=== PATIENT | female | born 1950 | race Caucasian/White ===

== ENCOUNTER → 2017-06-30 | Outpatient (CLI) | payer OTHER, MEDICARE | END | disposition home or self-care (01) | LOC: RAD 09:34 | PROVIDERS: ATTEND Podiatrist Foot & Ankle Surgery | DX: Z01.810 Encounter for preprocedural cardiovascular examination (principal) | CPT/HCPCS: 93005 ==

== ENCOUNTER → 2018-05-26 | Outpatient (CLI) | payer OTHER, MEDICARE | END | disposition home or self-care (01) | LOC: CFH 13:45 | PROVIDERS: ATTEND Obstetrics & Gynecology Female Pelvic Medicine and Reconstructive Surgery | DX: Z12.31 Encounter for screening mammogram for malignant neoplasm of breast (principal); Z13.820 Encounter for screening for osteoporosis; M85.88 Other specified disorders of bone density and structure, other site; Z78.0 Asymptomatic menopausal state | CPT/HCPCS: 77063; 77080; 77067 ==

== ENCOUNTER → 2018-09-18 | Outpatient (CLI) | payer MEDICARE, OTHER ==
[~2018-09-18] MED LIST: ACYC-114 PO; B CO1TAB14 PO; CALC-316 PO; IRON PO; VITAMIN K PO; [UNRECOGNIZED DRUG - OTHER] PO
== END | disposition home or self-care (01) ==
LOC: STAR 07:50
PROVIDERS: ATTEND Orthopaedic Surgery Foot and Ankle Surgery
DX: Z01.818 Encounter for other preprocedural examination (principal); M20.12 Hallux valgus (acquired), left foot; M79.672 Pain in left foot
CPT/HCPCS: 93005

== ENCOUNTER 2018-09-24 05:12 | Day surgery (SDC) | payer MEDICARE, OTHER ==
[~2018-09-24] VITALS: Ht 160 cm; Wt 40.0 kg
[2018-09-24] MEDS ORDERED: LACTATED RINGERS 1,000 ML IV SCH (05:57)
[2018-09-24 05:58] VITALS: BP 129/83
[2018-09-24] MEDS ORDERED: BUPIVACAINE/PF 0.5% ONE (06:41)
[2018-09-24] MEDS ORDERED: LIDOCAINE 1%, 20ML ONE (06:41)
[2018-09-24] MEDS ORDERED: MIDAZOLAM 1 MG/ML, 2ML ONE (06:42)
[2018-09-24] MEDS ORDERED: FENTANYL PF 100 MCG/2ML ONE (06:43)
[2018-09-24] MEDS ORDERED: DEXAMETHASONE 4 MG/ML, 1ML ONE (07:02)
[2018-09-24] MEDS ORDERED: ONDANSETRON 2MG/ML, 2ML ONE (07:02)
[2018-09-24] MEDS ORDERED: CEFAZOLIN 1,000 MG ONE (07:02)
[2018-09-24] MEDS ORDERED: PROPOFOL 10 MG/ML, 20ML ONE (07:02)
[2018-09-24] MEDS ORDERED: NEOSPORIN OINT, 15GM ONE (07:23)
[2018-09-24] MEDS ORDERED: OXYcodone 5 MG/5 ML ORAL.SOL UDC PO PRN (08:00)
[2018-09-24] MEDS ORDERED: FENTANYL PF 100 MCG/2ML IV PRN (08:00)
[2018-09-24] MEDS ORDERED: KETOROLAC 30 MG/1 ML IV PRN (08:00)
[2018-09-24] MEDS ORDERED: PROMETHAZINE 25 MG/ML, 1ML IV PRN (08:00)
[2018-09-24] MEDS ORDERED: HYDROmorphone 2 MG/ML, 1ML IVPush PRN (08:00)
[2018-09-24] MEDS ORDERED: MEPERIDINE/PF 25MG/0.5ML IVPush PRN (08:00)
[2018-09-24] MEDS ORDERED: hydrALAzine 20 MG/ML, 1ML IV PRN (08:00)
[2018-09-24] MEDS ORDERED: ACETAMINOPHEN 325 MG TABLET PO PRN (08:00)
[2018-09-24] MEDS ORDERED: ALBUTEROL SULFATE 2.5 MG/3 ML NPPB PRN (08:00)
[2018-09-24] MEDS ORDERED: LABETALOL 5MG/ML, 20ML IV PRN (08:00)
[2018-09-24] MEDS ORDERED: DIAZEPAM 5 MG/ML, 2ML IVPush PRN (08:00)
[2018-09-24] MEDS ORDERED: KETOROLAC 30 MG/1 ML ONE (08:06)
[2018-09-24] MEDS ORDERED: KETOROLAC 30 MG/1 ML IVPush ONE (08:30)
== END 2018-09-24 09:25 | disposition home or self-care (01) ==
LOC: OUT 05:12
PROVIDERS: ATTEND Orthopaedic Surgery Foot and Ankle Surgery
DX: M20.42 Other hammer toe(s) (acquired), left foot (principal); M24.575 Contracture, left foot; Z87.891 Personal history of nicotine dependence; Z72.89 Other problems related to lifestyle
CPT/HCPCS: 20680; 28270; 28285; 28308; 73620; 76000; C1713; J0690; J1100; J1885; J2250; J2405; J2704; J3010; J3490; J7120

== ENCOUNTER 2019-06-15 14:44 | Outpatient (CLI) | payer OTHER ==
[~2019-06-15 14:44] MED LIST changes: +MULT-308 PO
== END 2019-06-15 23:59 | disposition home or self-care (01) ==
LOC: CFH 14:44
PROVIDERS: ATTEND Obstetrics & Gynecology Female Pelvic Medicine and Reconstructive Surgery
DX: Z12.31 Encounter for screening mammogram for malignant neoplasm of breast (principal)
CPT/HCPCS: 77067